=== PATIENT | male | born 1950 | race African-American/Black ===

== ENCOUNTER 2017-02-26 12:30 | Emergency (ER) | payer OTHER, BC ==
[2017-02-26] MEDS ORDERED: PERCOCET 5/325 ONE (15:19)
[2017-02-26] MEDS ORDERED: ZOFRAN ODT ONE (15:19)
[2017-02-26] MEDS ORDERED: PERCOCET 5/325 PO ONE (15:22)
[2017-02-26] MEDS ORDERED: ZOFRAN ODT PO ONE (15:23)
[2017-02-26 16:00] LABS: Basophils % (Auto) 0.7 % (0.0-1.8); Eosinophils % (Auto) 0.7 % (0.0-4.3); Hemoglobin 13.4 gm/dl (11.8-15.2); Mean Corpuscular HGB Conc 34 % (32-34); Mean Corpuscular Hemoglobin 30 pg (28-32); Mean Corpuscular Volume 86 fl (84-94); Platelet Count 229 K/mm3 (140-440); Red Blood Count 4.52 M/mm3 (3.65-5.03); Red Cell Distribution Width 14.5 % (13.2-15.2); White Blood Count 6.5 K/mm3 (4.5-11.0)
[2017-02-26 16:17] LABS: Anion Gap 14 mmol/L; BUN/Creatinine Ratio 13.33; Blood Urea Nitrogen 8 mg/dL (9-20); Calcium 8.9 mg/dL (8.4-10.2); Carbon Dioxide 27 mmol/L (22-30); Chloride 102.5 mmol/L (98-107); Glucose 111 mg/dL (75-100); Sodium 139 mmol/L (137-145)
[2017-02-26] MEDS ORDERED: BOOSTRIX IM ONE (17:06)
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
[2017-02-26 19:43] VITALS: BP 123/73
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
== END 2017-02-26 19:47 | disposition home or self-care (01) ==
LOC: ED 12:30
DX: S01.111A Laceration without foreign body of right eyelid and periocular area, initial encounter (principal); M79.1 Myalgia; S00.11XA Contusion of right eyelid and periocular area, initial encounter; I10 Essential (primary) hypertension; V49.49XA Driver injured in collision with other motor vehicles in traffic accident, initial encounter; Y93.9 Activity, unspecified; Y92.9 Unspecified place or not applicable; Y99.9 Unspecified external cause status
CPT/HCPCS: 36415; 70450; 72125; 80048; 85025; 90471; 90715; 99284; Q0162

== ENCOUNTER 2018-03-06 07:48 | Emergency (ER) | payer BC, MEDICARE ==
[2018-03-06] MEDS ORDERED: ASPIRIN PO ONE (07:59)
[2018-03-06 08:05] VITALS: BP 169/90
[2018-03-06 08:10] LABS: Basophils # (Auto) 0.1 K/mm3 (0.0-0.1); Basophils % (Auto) 1.3 % (0.0-1.8); Eosinophils # (Auto) 0.1 K/mm3 (0.0-0.4); Eosinophils % (Auto) 1.9 % (0.0-4.3); Hematocrit 40.2 % (35.5-45.6); Hemoglobin 13.5 gm/dl (11.8-15.2); Lymphocytes # (Auto) 1.7 K/mm3 (1.2-5.4); Mean Corpuscular HGB Conc 34 % (32-34); Mean Corpuscular Hemoglobin 29 pg (28-32); Mean Corpuscular Volume 87 fl (84-94); Monocytes # (Auto) 0.3 K/mm3 (0.0-0.8); Monocytes % (Auto) 7.4 % (0.0-7.3); Platelet Count 258 K/mm3 (140-440); Red Blood Count 4.64 M/mm3 (3.65-5.03); Red Cell Distribution Width 14.2 % (13.2-15.2)
[2018-03-06 08:23] LABS: BUN/Creatinine Ratio 13; Blood Urea Nitrogen 9 mg/dL (9-20); Calcium 8.9 mg/dL (8.4-10.2); Hemolysis Index 8
--- NOTE | 2018-03-06 17:11 | Emergency Department Report ---
ED General Adult HPI - General Chief complaint: Chest Pain Stated complaint: HEART PALPITATIONS Time Seen by Provider: 03/06/18 16:01 Source: patient Mode of arrival: Ambulatory Limitations: No Limitations - History of Present Illness Initial comments: Mr. Glez is a healthy 67-year-old male with a history of anxiety and atrial fibrillation paroxysmal. Atrial fibrillation has been controlled in normal sinus rhythm with propafenone 225 mg twice a day. 5 months ago he began taking half a tablet at night because he was concerned for bradycardia. Over the last 3 days he has had recurrent palpitations in the morning. The palpitations stopped after taking his morning dose of propafenone. He attributed the palpiations to caffeine intake 3 days ago. this morning he had burning chest pain with arm pain and back pain with the palpitations. He has had multiple normal cardiac evaluations including stress test and echocardiogram. 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 He currently is pain-free. He denies any palpitations current. Severity scale (0 -10): 0 - Related Data Previous Rx's Medication Instructions Recorded Last Taken Type Acetaminophen/Codeine [Tylenol #3] 1 tab PO Q6H PRN #20 tab 02/26/17 Unknown Rx Bacitracin Zinc [Antibiotic] 1 applic TP TID #1 tube 02/26/17 Unknown Rx Cephalexin [Keflex] 500 mg PO BID #10 capsule 02/26/17 Unknown Rx Cyclobenzaprine [Flexeril] 10 mg PO QHS PRN #20 tablet 02/26/17 Unknown Rx Ibuprofen [Motrin] 600 mg PO Q8H PRN #40 tablet 02/26/17 Unknown Rx Allergies Allergy/AdvReac Type Severity Reaction Status Date / Time Penicillins AdvReac Dizziness Verified 03/06/18 07:58 ED Review of Systems ROS: Stated complaint: HEART PALPITATIONS Other details as noted in HPI Comment: All other systems reviewed and negative Constitutional: denies: fever, malaise Respiratory: denies: cough Cardiovascular: chest pain, palpitations ED Past Medical Hx - Past Medical History Previous Medical History?: Yes Hx Hypertension: Yes Additional medical history: ATRIAL FIBRILLATION - Surgical History Past Surgical History?: Yes Hx Internal Defibrillator: Yes - Social History Smoking Status: Never Smoker Substance Use Type: None - Medications Home Medications: Home Medications Medication Instructions Recorded Confirmed Last Taken Type Acetaminophen/Codeine [Tylenol #3] 1 tab PO Q6H PRN #20 tab 02/26/17 Unknown Rx Bacitracin Zinc [Antibiotic] 1 applic TP TID #1 tube 02/26/17 Unknown Rx Cephalexin [Keflex] 500 mg PO BID #10 capsule 02/26/17 Unknown Rx Cyclobenzaprine [Flexeril] 10 mg PO QHS PRN #20 tablet 02/26/17 Unknown Rx Ibuprofen [Motrin] 600 mg PO Q8H PRN #40 tablet 02/26/17 Unknown Rx ED Physical Exam - General Limitations: No Limitations General appearance: alert, in no apparent distress - Head Head exam: Present: atraumatic, normocephalic - Eye Eye exam: Present: normal appearance - ENT ENT exam: Present: mucous membranes moist - Neck Neck exam: Present: normal inspection. Absent: tenderness, meningismus - Respiratory Respiratory exam: Present: normal lung sounds bilaterally. Absent: respiratory distress, wheezes, rales - Cardiovascular Cardiovascular Exam: Present: regular rate, normal rhythm. Absent: systolic murmur, diastolic murmur, rubs, gallop - GI/Abdominal GI/Abdominal exam: Present: soft, normal bowel sounds. Absent: distended, tenderness, guarding, rebound - Rectal Rectal exam: Present: deferred - Extremities Exam Extremities exam: Present: normal inspection - Back Exam Back exam: Present: normal inspection - Neurological Exam Neurological exam: Present: alert, oriented X3 - Psychiatric Psychiatric exam: Present: normal affect, normal mood - Skin Skin exam: Present: warm, dry, intact, normal color. Absent: rash ED Course Vital Signs 03/06/18 08:04 Temperature 98.6 F Pulse Rate 65 Respiratory 16 Rate Blood Pressure 169/90 [Left] O2 Sat by Pulse 100 Oximetry ED Medical Decision Making - Lab Data Result diagrams: 03/06/18 08:02 03/06/18 08:00 Laboratory Results - last 24 hr 03/06/18 03/06/18 03/06/18 08:00 08:02 10:29 WBC 4.1 L RBC 4.64 Hgb 13.5 Hct 40.2 MCV 87 MCH 29 MCHC 34 RDW 14.2 Plt Count 258 Lymph % (Auto) 42.0 H [place] % (Auto) 7.4 H Eos % (Auto) 1.9 Baso % (Auto) 1.3 Lymph # 1.7 [place] # 0.3 Eos # 0.1 Baso # 0.1 Seg Neutrophils % 47.4 Seg Neutrophils # 1.9 Sodium 137 Potassium 3.6 Chloride 98.6 Carbon Dioxide 28 Anion Gap 14 BUN 9 Creatinine 0.7 L Estimated GFR > 60 BUN/Creatinine Ratio 13 Glucose 130 H Calcium 8.9 Troponin T < 0.010 < 0.010 03/06/18 14:36 WBC RBC Hgb Hct MCV MCH MCHC RDW Plt Count Lymph % (Auto) [place] % (Auto) Eos % (Auto) Baso % (Auto) Lymph # [place] # Eos # Baso # Seg Neutrophils % Seg Neutrophils # Sodium Potassium Chloride Carbon Dioxide Anion Gap BUN Creatinine Estimated GFR BUN/Creatinine Ratio Glucose Calcium Troponin T < 0.010 Vital Signs - 24 hr 03/06/18 08:04 Temperature 98.6 F Pulse Rate 65 Respiratory 16 Rate Blood Pressure 169/90 [Left] O2 Sat by Pulse 100 Oximetry - EKG Data -: EKG Interpreted by Wy EKG shows normal: sinus rhythm, intervals, QRS complexes, ST-T waves Rate: normal - EKG Data 03/06/18 17:08 EKG obtained at 0 757 Rate 60 beats a minute normal sinus rhythm left axis deviation normal intervals no ST elevation - Medical Decision Making Mr. Glez presents with palpitations for the last 3 days. With palpitations today he had associated chest arm back pain. I suspect paroxysmal atrial fibrillation which is controlled with his morning dose of propafenone. No evidence of OH or acute coronary syndrome. Several serial troponins are negative. I spoke with Dr. Rico who recommended full dosing of propafenone tablet twice a day. Patient is currently symptom-free. I do not suspect pulmonary embolism or infection at this time. Patient understands return precautions. Critical care attestation.: If time is entered above; I have spent that time in minutes in the direct care of this critically ill patient, excluding procedure time. ED Disposition Clinical Impression: Paroxysmal atrial fibrillation, Chest pain Disposition: -01 TO HOME OR SELFCARE Is pt being admited?: No Does the pt Need Aspirin: No Condition: Stable Instructions: Chest Pain (ED), Atrial Fibrillation (ED) Referrals: DANN GUTIERREZ MD [Primary Care Provider] - 3-5 Days PANKAJ RICO MD [Staff Physician] - 3-5 Days Forms: Work/School Release Form(ED) Time of Disposition: 17:12
== END 2018-03-06 17:25 | disposition home or self-care (01) ==
LOC: ED 07:48
DX: I48.0 Paroxysmal atrial fibrillation (principal); I10 Essential (primary) hypertension; Z88.0 Allergy status to penicillin
CPT/HCPCS: 36415; 80048; 84484; 85025; 93005; 93010; 99283

== ENCOUNTER 2020-10-18 11:20 | Day surgery (SDC) | payer BC, MEDICARE ==
--- NOTE | 2020-10-11 12:18 | Anesthesia Consultation ---
Anesthesia Consult and Med Hx Date of service: 10/18/20 - Airway Anesthetic Teeth Evaluation: Dentures, Edentulous (Upper) ROM Head & Neck: Adequate Mental/Hyoid Distance: Adequate Mallampati Class: Class II Intubation Access Assessment: Good - Pre-Operative Health Status Proposed Anesthetic Plan: Spinal (SAB; GA if needed) - Pulmonary Hx Smoking: No Hx Asthma: No COPD: No Hx Pneumonia: No Hx Sleep Apnea: No (SNORES) - Cardiovascular System Hx Hypertension: Yes Hx Heart Attack/AMI: No Hx Cardia Arrhythmia: Yes (Just had an ablation) Hx Pacemaker: No Hx Internal Defibrillator: Yes Hx Heart Murmur: No - Central Nervous System Hx Seizures: No Hx Back Pain: Yes (LOWER SOMETIMES) Hx Psychiatric Problems: Yes - Gastrointestinal Hx Ulcer: Yes - Endocrine Hx End Stage Renal Disease: No Hx Cirrhosis: No Hx Liver Disease: No - Hematic Hx Anemia: No Hx Sickle Cell Disease: No - Other Systems Hx Alcohol Use: No Hx Substance Use: No Hx Cancer: No
[2020-10-11 12:20] LABS: Hematocrit 35.1 % (35.5-45.6); Hemoglobin 12.4 gm/dl (11.8-15.2); Mean Corpuscular HGB Conc 35 % (32-34); Mean Corpuscular Volume 88 fl (84-94); Platelet Count 221 K/mm3 (140-440); Red Blood Count 3.99 M/mm3 (3.65-5.03); Red Cell Distribution Width 14.7 % (13.2-15.2)
[2020-10-11 13:11] LABS: Alanine Aminotransferase 19 units/L (7-56); Albumin 3.9 g/dL (3.9-5); Blood Urea Nitrogen 9 mg/dL (9-20); Hemolysis Index 14
[2020-10-11 13:12] LABS: BUN/Creatinine Ratio 13
[~2020-10-18 11:20] MED LIST: LACTATED RINGERS 1,000 ML IV SCH
[2020-10-18] MEDS ORDERED: ONDANSETRON 4 MG/2 ML INJ IV PRN (12:11)
[2020-10-18] MEDS ORDERED: HYDROmorphone 1 MG/1 ML INJ IV PRN ×2 (12:11)
--- NOTE | 2020-10-18 12:11 | Anesthesia Day of Surgery ---
Anesthesia Day of Surgery - Day of Surgery Patient Examined: Yes Patient H&P Reviewed: Yes Patient is NPO: Yes
[2020-10-18] MEDS ORDERED: GENTAMICIN 160 MG in SODIUM CHLORIDE 0.9% 100 ML IV SCH (12:30)
[2020-10-18] MEDS ORDERED: WATER FOR IRRIG STERILE 1,500 ML BOTTLE IR ONE (13:17)
[2020-10-18] MEDS ORDERED: WATER FOR IRRIG STERILE 2000 ML IR ONE (13:18)
--- NOTE | 2020-10-18 13:31 | Post Operative Note ---
Date of procedure: 10/18/20 Pre-op diagnosis: inc psa Post-op diagnosis: same Findings: as above Procedure: flex cysto pus Anesthesia: GETA Surgeon: MELISSA CHUNG Estimated blood loss: minimal Pathology: list (prostate) Specimen disposition: to lab Condition: stable Disposition: PACU
--- NOTE | 2020-10-18 13:33 | Discharge Summary ---
Short Stay Discharge Plan Activity: other (no straining ) Weight Bearing Status: Full Weight Bearing Diet: low fat Special Instructions: other (ic fluids ) Follow up with: DANN GUTIERREZ MD [Primary Care Provider] - 7 Days MELISSA CHUNG MD [Staff Physician] - 7 Days
--- NOTE | 2020-10-18 14:45 | Operative Report ---
PREOPERATIVE DIAGNOSES: Elevated prostate-specific antigen, large prostate and hematuria. POSTOPERATIVE DIAGNOSES: Elevated prostate-specific antigen, large prostate and hematuria. PROCEDURE: Cystoscopy, retrograde prostate biopsy. SURGEON: Dr. Alonso. ANESTHESIA: Spinal. FINDINGS: This is a gentleman with large prostate. CT scan done at [facility] showed a large prostate. No ureteral obstruction, now presents for treatment. DESCRIPTION OF PROCEDURE: The patient was brought to the operating table. Following induction of anesthesia, placed in lithotomy position, prepped and draped in usual sterile fashion. Cystourethroscopy showed mildly enlarged prostate, small middle lobe. The gland measured approximately 74 mL. Retrograde showed a delicate system, good drainage, but a little bit of a tortuous ureter. No persistent filling defects. Prostate biopsies were done. Good specimens were achieved. We left the catheter, probably will have some difficulty voiding and catheter can come out tomorrow. JOB# [id number] GILSON/SLY
--- NOTE | 2020-10-18 15:01 | Post Anesthesia Evaluation ---
- Post Anesthesia Evaluation Patient Participated: Yes Airway Patent: Yes Stable Respiratory Function: Yes Nausea/Vomiting: No Temp > 96.8F: Yes Pain Manageable: Yes Adequeate Hydration: Yes Anesthesia Complications: No Block Receding Appropriately: Yes Patient on Ventilator: No
--- NOTE | 2020-10-18 15:32 | Ultrasound Report ---
Limited transrectal Ultrasound HISTORY: ELEVATED PSA. TECHNIQUE: Grayscale and color imaging performed. COMPARISON: None IMPRESSION: Ultrasound guidance provided for prostate biopsy. Prostatic volume was 74 mL and there wa s a heterogeneous appearance. Please refer to the operative note for complete details. Signer Name: Salvador Fiore MD Signed: 10/18/2020 3:31 PM Workstation Name: [id number]
--- NOTE | 2020-10-18 15:33 | Fluoroscopy Report ---
5 fluoroscopic images submitted Indication: Intraoperative localization Impression: 5 images of the abdomen were submitted for documentation purposes with radiology involve ment. Bilateral retrograde pyelograms were performed. Approximately 10 mL of Omnipaque 300 was utili zed. Please refer to the operative note for complete details. Fluoroscopic time: 7 seconds Signer Name: Salvador Fiore MD Signed: 10/18/2020 3:32 PM Workstation Name: [id number]
[2020-10-18 16:09] VITALS: BP 111/65
== END 2020-10-18 17:10 | disposition home or self-care (01) ==
LOC: OR 11:20
PROVIDERS: ATTEND Urology
DX: R97.20 Elevated prostate specific antigen [PSA] (principal); Z20.828 Contact with and (suspected) exposure to other viral communicable diseases; I42.9 Cardiomyopathy, unspecified; I48.91 Unspecified atrial fibrillation; I10 Essential (primary) hypertension; K21.9 Gastro-esophageal reflux disease without esophagitis; F41.9 Anxiety disorder, unspecified; Z88.0 Allergy status to penicillin; Z79.82 Long term (current) use of aspirin; Z79.899 Other long term (current) drug therapy; Z87.442 Personal history of urinary calculi; Z87.440 Personal history of urinary (tract) infections
CPT/HCPCS: 36415; 52005; 55700; 74420; 76872; 80053; 85027; 88305; 88344; A4217; J1580; J1956; J7120; Q9967; U0003